=== PATIENT | female | born 1985 | race Caucasian/White ===

== ENCOUNTER 2023-04-28 12:43 | Outpatient (CLI) | payer BC | END 2023-04-28 12:44 | disposition home or self-care (01) | LOC: BICMRI 12:43 | PROVIDERS: ATTEND Family Medicine | DX: M23.91 Unspecified internal derangement of right knee (principal); M25.461 Effusion, right knee; M67.863 Other specified disorders of tendon, right knee; M22.41 Chondromalacia patellae, right knee; R93.7 Abnormal findings on diagnostic imaging of other parts of musculoskeletal system ==